=== PATIENT | male | born 1950 | race Two or more races ===

== ENCOUNTER 2024-06-25 04:13 | Inpatient (IN) | payer MEDICARE, MEDICAID, SELFPAY ==
[2024-06-25] VITALS (7 sets, daily range): BP systolic 109–144; BP diastolic 62–87; PULSE 65–120; RESP 15–19; TEMP 36.3–37.4; O2SAT 95–98; BMI 27.3
--- NOTE | 2024-06-25 04:27 | XR_ITS ---
Examination: CT abdomen with intravenous contrast CT pelvis with intravenous contrast 2-D coronal reconstructions 2-D sagittal reconstructions Date and time of exam:July 05, 2024 0855 hrs. Indications: Constipation fever chills abdominal pain today. CTDI: vol (mGy) 9.7 DLP: (mGycm) 591 Technique: Multiple axial sections of the abdomen and pelvis have been obtained. 64 slice high-resolution scanner used. 3 mm axial sections have been obtained, post intravenous injection 60 cc [id number] 2-D sagittal, coronal reconstructions obtained. Low dose protocols were performed. One or more of the following dose reduction techniques were used; automated exposure control, adjustment of the mA and/or KV according to patient size, use of iterative reconstruction technique. Findings: Mild enlargement cardiac contour No focal liver or splenic lesions No gallstones No pancreatic or adrenal mass 2 mm upper pole nonobstructing left renal calculus Mild perinephric stranding No ureteral calculi or hydronephrosis Fluid distended and stool distended colon with mild rectal wall thickening Normal appendix Urinary bladder intact Mild prostatomegaly Fat-containing hernias Impression: 2 mm nonobstructing left renal calculus Colonic ileus, diffuse nonspecific colitis pattern Normal appendix Large fat-containing inguinal hernias .
--- NOTE | 2024-06-25 04:28 | PD.EDRME ---
Rapid Medical Screening Exam RME Arrival date/time: 06/25/24 04:13 73-year-old male reports with complaints of left lower quadrant abdominal pain body aches fever chills x 1 day Chief Complaint: Abdominal Pain
[2024-06-25 05:09] LABS: Basophils % (Auto) 0 % (0-2.5); Eosinophils % (Auto) 0 % (0-10); Hematocrit 39.8 % (41.0-53.0); Hemoglobin 14.1 g/dL (13.5-16.0); Immature Granulocytes % (Auto) 0 % (0-0); Immature Granulocytes Auto 0.04 Thou/mm3 (0.00-0.00); Lymphocytes # (Auto) 0.7 Thou/mm3 (1.0-4.8); Lymphocytes % (Auto) 4 % (10-50); Mean Corpuscular HGB Conc 35.4 g/dl (31.0-37.0); Mean Corpuscular Hemoglobin 34.9 pg (25.0-35.0); Mean Corpuscular Volume 99 fL (80-100); Monocytes # (Auto) 1.2 Thou/mm3 (0.0-0.8); Monocytes % (Auto) 8 % (0-12); Neutrophils # (Auto) 14.1 Thou/mm3 (1.8-7.7); Neutrophils % (Auto) 88 % (37-80); Nucleated Red Blood Cell % 0 /100 WBC (0); Platelet Count 179 Thou/mm3 (140-440); RDW Standard Deviation 44.9 fL (35.1-43.9); Red Blood Count 4.04 Miln/mm3 (4.50-5.90); White Blood Count 16.1 Thou/mm3 (3.8-10.6)
[2024-06-25 05:46] LABS: Alanine Aminotransferase 16 U/L (10-49); Albumin, Serum 4.5 gm/dL (3.4-4.8); Albumin/Globulin Ratio 1.7 (1.2-2.2); Alkaline Phosphatase 118 U/L (46-116); Anion Gap 9 (7-16); Aspartate Amino Transferase 25 U/L (0-34); BUN/Creatinine Ratio 20 Ratio (12-20); Blood Urea Nitrogen 22 mg/dL (9-23); Calcium 9.5 mg/dL (8.3-10.6); Calcium (Corrected) 9.5 mg/dL (8.5-10.1); Carbon Dioxide 29.6 mMol/L (20.0-31.0); Chloride 103 mMol/L (98-107); Creatinine (Component) 1.1 mg/dL (0.6-1.3); Estimated Creatinine Clearance 61.6 mL/min (>60); Globulin 2.7 gm/dL (2.3-3.5); Glucose 208 mg/dL (74-106); Lipase 54 U/L (12-53); Osmolality,Calculated 292 (275-295); Potassium 3.8 mMol/L (3.4-5.1); Sodium 142 mMol/L (136-145); Total Protein 7.2 gm/dL (5.7-8.2); eGFR > 60 See Note
[2024-06-25] MEDS: SODIUM CHLORIDE 0.9% 1000 ML 1,000 ML 999 ML IV (06:24)
[2024-06-25] MEDS: PIPER/TAZO INJ 3.375 GM in SODIUM CHLORIDE 0.9% (Popper) 50 ML IV ×3 (06:24→22:12)
[2024-06-25 07:20] LABS: Lactate (Lactic Acid) 2.7 mMol/L (0.4-2.0)
--- NOTE | 2024-06-25 07:25 | EDNOTE_ITS ---
ED Abdominal Pain RME/HPI General Chief Complaint: Abdominal Pain Stated complaint: ABD PAIN Time seen by provider: 06/25/24 04:33 Arrival date/time: 06/25/24 04:13 RME / HPI RME / HPI narrative: 06/25/24 04:13 73-year-old male reports with complaints of left lower quadrant abdominal pain body aches fever chills x [address] MARTINEZ MAIN ED EVALUATION: 73 year old male with past medical history significant for hypertension, GERD, and laparoscopic hiatal hernia repair 11/30/[address] Eng presents to the Emergency Department with complaint of left lower quadrant abdominal pain onset 1 day. Pain is described as aching and rated moderate in severity. Associated symptoms body aches, fevers and chills. Related Data Home Medications ?Medication ?Instructions ?Recorded ?Confirmed losartan 50 mg tablet 50 mg PO QDAY 02/22/2006/25 tamsulosin 0.4 mg capsule 0.4 mg PO QDAY 10/19/2301/11 Previous Rx's ?Medication ?Instructions ?Recorded hydrocodone 10 mg-acetaminophen 1 tab PO Q6H PRN pain #28 tabs 11/30/23 325 mg tablet ibuprofen 800 mg tablet 800 mg PO Q8H PRN pain #60 t abs 11/30/23 Allergies Allergy/AdvReac Type Severity Reaction Status Date / Time No Known Allergies Allergy Verified 10/19/23 09:29 Review of Systems Review of Systems Systems Reviewed: All systems reviewed, normal except as documented Narrative Review of Systems: GEN: + fever, + chills, no weight loss EYES: No discharge, no visual changes, no pain HEENT: No ear pain, no congestion, no sore throat PULM: No shortness of breath, no cough, no congestion CV: No chest pain, no dyspnea on exertion, no palpitations GI: No nausea, no vomiting, no diarrhea, + left lower quadrant abdominal pain, no constipation : No frequency, no urgency and no dysuria MUSC/SKEL: + body aches, no back pain SKIN: No rash PSYCH: No hallucinations, no depression HEME/LYMPH: No easy bleeding or bruising tendencies NEURO: No weakness, no headache Past Medical History Past Medical History CARDIAC: Positive Hypertension GASTROINTESTINAL: Positive Gastrointestinal Disorders, Hiatal Hernia and Gastroesophageal Reflux Disease ENT: Positive Cataracts (2021) OTHER HISTORY: Positive Mumps Social History SMOKING STATUS: Never smoker SUBSTANCE USE: does not use ALCOHOL: Never ED Exam Narrative Physical exam: GENERAL APPEARANCE: alert and oriented x 4, well-developed, well-nourished, no acute distress VITALS: All vitals were reviewed and the pulse ox is 97% on room air, which is normal according to my interpretation. HEENT: Normocephalic, atraumatic; pupils equal, round, reactive to light; EOMI; mucous membranes pink, moist; oropharynx clear NECK: Supple LUNGS: CTABL; no wheezes, no rales, no rhonchi HEART: Regular rate, regular rhythm; normal S1, S2; no murmurs ABDOMEN: non distended; normal BS; soft, no tenderness, no guarding, no rebound; no masses, no organomegaly, no hernia BACK: no CVA tenderness EXTREMITIES: atraumatic; no edema NEUROLOGIC: awake; alert and oriented x4; cranial nerves II-XII grossly intact; no focal sensory or motor deficits PSYCHIATRIC: appropriate mood and affect SKIN: warm, dry, normal color; no rashes Course Quality Measures none Orders Category Date Time Status Bedside COVID-19 Antigen Test NOW Care 06/25/24 04:27 Completed Bedside Influenza A&B Antigen Test NOW Care 06/25/24 04:[address] Screening NOW Care 06/25/24 04:28 Active IV [Insert IV] NOW Care 06/25/24 05:[address] abdomen pelvis w con Stat Exams 06/25/24 04:27 Completed Blood Culture (Lab) Stat Lab 06/25/24 06:50 Results CBC Stat Lab 06/25/24 05:02 Completed CMP [Comprehensive Metabolic Panel] Stat Lab 06/25/24 05:02 Completed Lactate (Lactic Acid) Stat Lab 06/25/24 06:56 Completed Lactic Acid, 3 HR Stat Lab 06/25/24 10:30 Completed Lipase Stat Lab 06/25/24 05:02 Completed Occult Blood, Stool (LAB) Stat Lab 06/25/24 09:40 Completed Procalcitonin Stat Lab 06/25/24 05:02 Completed Urinalysis Stat Lab 06/25/24 07:17 Completed Urine Culture Stat Lab 06/25/24 07:17 Received Morphine Inj Med 06/25/24 07:21 Discontinued 5 mg IVP X1 ONE Ondansetron Inj [Zofran Inj] Med 06/25/24 07:21 Discontinued 4 mg IV X1 ONE Pantoprazole Inj [Protonix Inj] Med 06/25/24 08:59 Discontinued 80 mg IV X1 ONE Pantoprazole/Ns 80Mg IV Premix [Protonix/NS 80mg IV Med 06/25/24 08:59 Discontinued Premix] 80 mg in 100 ml IV X1 Piper/Tazo Inj [Zosyn Inj] 3.375 gm Med 06/25/24 06:12 Discontinued SODIUM CHLORIDE 0.9% (Popper) [Ns 0.9% (P)] 50 ml IV X1 Sodium Chloride 0.9% 1000 ml [Ns] 1,000 ml Med 06/25/24 06:12 Discontinued IV 999 mls/hr Vital Signs Vital signs: Vital Signs Temperature 98.1 F 06/25/24 04:29 Pulse Rate 120 H 06/25/24 04:29 Respiratory Rate 18 06/25/24 04:29 Blood Pressure 125/86 H 06/25/24 04:29 Pulse Oximetry (%) 96 06/25/24 04:29 Oxygen Delivery Method Room Air 06/25/24 04:29 Abdominal Pain MDM MDM Narrative MDM Narrative:: IManuela am scribing for and in the presence of Dr. Martinez. Patient data External records reviewed:: [facility] previous records (Reviewed laparoscopic hiatal hernia repair note by Dr. Eng, dated 11/30/23.) Clinical information provided by:: patient Social determinants that could affect healthcare access:: none Patient has the following chronic illnesses:: hypertension, GERD, and laparoscopic hiatal hernia repair 11/30/[address] nEg How is presenting disease/condition affected by chronic disease/condition?: exacerbated by Evaluation data The following diagnostics were reviewed and interpreted by me:: lab results and radiology exam(s) Lab and/or radiology exams considered but not ordered:: none Interpretation Summary: Procedure(s): CT abdomen pelvis w con Accession Number(s): [id number] cc: Juana Winchester MD; Jim Fuchs MD; Edgardo Andrade PA-C~ Examination: CT abdomen with intravenous contrast CT pelvis with intravenous contrast 2-D coronal reconstructions 2-D sagittal reconstructions Date and time of exam:July 05, 2024 0855 hrs. Indications: Constipation fever chills abdominal pain today. CTDI: vol (mGy) 9.7 DLP: (mGycm) 591 Technique: Multiple axial sections of the abdomen and pelvis have been obtained. 64 slice high-resolution scanner used. 3 mm axial sections have been obtained, post intravenous injection 60 cc [id number] 2-D sagittal, coronal reconstructions obtained. Low dose protocols were performed. One or more of the following dose reduction techniques were used; automated exposure control, adjustment of the mA and/or KV according to patient size, use of iterative reconstruction technique. Findings: Mild enlargement cardiac contour No focal liver or splenic lesions No gallstones No pancreatic or adrenal mass 2 mm upper pole nonobstructing left renal calculus Mild perinephric stranding No ureteral calculi or hydronephrosis Fluid distended and stool distended colon with mild rectal wall thickening Normal appendix Urinary bladder intact Mild prostatomegaly Fat-containing hernias Impression: 2 mm nonobstructing left renal calculus Colonic ileus, diffuse nonspecific colitis pattern Normal appendix Large fat-containing inguinal hernias . Dictated By: Jim Fuchs MD Medications / Prescriptions Medications or Prescriptions considered but not ordered:: none Medication administrations:: Medication Administration History Acetaminophen (Acetaminophen 325 Mg Tablet) 650 mg PO Q6H PRN PRN Reason: PAIN SCALE 1-3 (mild Stop: 07/25/24 11:28 Last Admin: 06/26/24 11:21 Dose: 650 mg Documented By: [place] Diphenhydramine HCl (Diphenhydramine Inj 50 Mg/Ml Vial) 25 mg IV [id number] PRN PRN Reason: MODERATE SEDATION Stop: 06/26/24 20:20 Fentanyl Citrate (Fentanyl Cit Inj 50 Mcg/Ml Amp 2ml) 50 mcg IV Q2M PRN PRN Reason: MODERATE SEDATION Stop: 06/26/24 20:20 Heparin Sodium (Porcine) (Heparin Sod Inj 5000 Unit/Ml Vial) 5,000 unit SC Q8HR MICHAEL Stop: 07/09/24 13:59 Last Admin: 06/26/24 13:19 Dose: Not Given Documented By: JV Non-Admin Reason: Held for Procedure Admin: 06/26/24 05:13 Dose: 5,000 unit Documented By: EVELINE Co-signed By: DOMINGA Admin: 06/25/24 22:13 Dose: 5,000 unit Documented By: FF Co-signed By: RB Admin: 06/25/24 15:12 Dose: 5,000 unit Documented By: [place] Co-signed By: LT Sodium Chloride (Ns) 1,000 mls @ 75 mls/hr IV .[id number] REPLACED BY [facility] Stop: 07/25/24 11:29 Last Admin: 06/26/24 17:30 Dose: 75 mls/hr Documented By: Infusion: 06/26/24 15:17 Dose: Infused Documented By: Admin: 06/26/24 01:57 Dose: 75 mls/hr Documented By: Infusion: 06/26/24 01:43 Dose: Infused Documented By: Admin: 06/25/24 12:23 Dose: 75 mls/hr Documented By: GM Piperacillin Sod/Tazobactam (Sod 3.375 gm/ Sodium Chloride) 50 mls @ 12.5 mls/hr IV Q8HR MICHAEL Stop: 07/02/24 13:59 Last Admin: 06/26/24 13:18 Dose: 12.5 mls/hr Documented By: JDanni Infusion: 06/26/24 09:13 Dose: Infused Documented By: Admin: 06/26/24 05:13 Dose: 12.5 mls/hr Documented By: Infusion: 06/26/24 02:12 Dose: Infused Documented By: Admin: 06/25/24 22:12 Dose: 12.5 mls/hr Documented By: Infusion: 06/25/24 19:13 Dose: Infused Documented By: Admin: 06/25/24 15:13 Dose: 12.5 mls/hr Documented By: [place] Meperidine HCl (Meperidine Inj 50 Mg/Ml Vial) 50 mg IV Q2M PRN PRN Reason: Moderate Sedation Stop: 06/26/24 20:20 Midazolam HCl (Midazolam Inj 1 Mg/Ml Vial 2 Ml) 2 mg IV Q2M PRN PRN Reason: Moderate Sedation Stop: 06/26/24 20:20 Pantoprazole Sodium (Pantoprazole Inj 40 Mg Vial) 40 mg IV BID REPLACED BY [facility] Stop: 07/25/24 20:59 Last Admin: 06/26/24 09:09 Dose: 40 mg Documented By: JDanni Admin: 06/25/24 20:46 Dose: 40 mg Documented By: FF Tamsulosin HCl (Tamsulosin Hcl 0.4 Mg Capsule) 0.4 mg PO QDAY MICHAEL Stop: 07/26/24 08:59 Last Admin: 06/26/24 09:20 Dose: Not Given Documented By: DEEPA Non-Admin Reason: NPO Discontinued Medications Diphenhydramine HCl (Diphenhydramine Inj 50 Mg/Ml Vial) Confirm Administered Dose 50 mg .ROUTE .STK-MED ONE Stop: 06/26/24 18:53 Fentanyl Citrate (Fentanyl Cit Inj 50 Mcg/Ml Amp 2ml) Confirm Administered Dose 100 mcg .ROUTE .STK-MED ONE Stop: 06/26/24 18:53 Piperacillin Sod/Tazobactam (Sod 3.375 gm/ Sodium Chloride) 50 mls @ 100 mls/hr IV X1 ONE Stop: 06/25/24 06:41 Last Infusion: 06/25/24 07:16 Dose: Infused Documented By: Admin: 06/25/24 06:24 Dose: 100 mls/hr Documented By: LEATHA Sodium Chloride (Ns) 1,000 mls @ 999 mls/hr IV .Q1H1M ONE Stop: 06/25/24 07:12 Last Infusion: 06/25/24 07:16 Dose: Infused Documented By: Admin: 06/25/24 06:24 Dose: 999 mls/hr Documented By: LEATHA Pantoprazole Sodium (Protonix/Ns 80mg Iv Premix) 80 mg in 100 mls @ 10 mls/hr IV X1 ONE Stop: 06/25/24 18:58 Last Admin: 06/25/24 09:13 Dose: 10 mls/hr Documented By: STEVE Midazolam HCl (Midazolam Inj 1 Mg/Ml Vial 2 Ml) Confirm Administered Dose 4 mg .ROUTE .STK-MED ONE Stop: 06/26/24 18:53 Morphine Sulfate (Morphine Sulf Inj 10 Mg/Ml Vial) 5 mg IVP X1 ONE Stop: 06/25/24 07:22 Last Admin: 06/25/24 08:46 Dose: 5 mg Documented By: MAUDE Morphine Sulfate (Morphine Sulf Inj 10 Mg/Ml Vial) 5 mg IVP X1 ONE Stop: 06/25/24 11:30 Last Admin: 06/25/24 12:18 Dose: 5 mg Documented By: MAUDE Ondansetron HCl (Ondansetron Inj 2 Mg/Ml Inj 2 Ml) 4 mg IV X1 ONE Stop: 06/25/24 07:22 Last Admin: 06/25/24 08:44 Dose: 4 mg Documented By: MAUDE Ondansetron HCl (Ondansetron Inj 2 Mg/Ml Inj 2 Ml) 4 mg IV X1 ONE Stop: 06/25/24 11:30 Last Admin: 06/25/24 12:20 Dose: 4 mg Documented By: GM Pantoprazole Sodium (Pantoprazole Inj 40 Mg Vial) 80 mg IV X1 ONE Stop: 06/25/24 09:00 Last Admin: 06/25/24 09:12 Dose: 80 mg Documented By: STEVE Polyethylene Glycol/Electrolytes ([place]/Nahco3/Jose/Peg (Golytely) 4,000 Ml Btl) 4,000 ml PO X1 ONE Stop: 06/25/24 11:36 Last Admin: 06/25/24 12:31 Dose: 4,000 ml Documented By: GM Comments: GIVEN TO PT PO. Polyethylene Glycol/Electrolytes ([place]/Nahco3/Jose/Peg (Golytely) 4,000 Ml Btl) 4,000 ml PO X1 ONE Stop: 06/26/24 07:43 Last Admin: 06/26/24 07:53 Dose: 4,000 ml Documented By: [place] Potassium Chloride (Potassium Chloride 20 Meq Tabcr) 40 meq PO X1 ONE Stop: 06/26/24 10:02 Last Admin: 06/26/24 10:06 Dose: Not Given Documented By: [place] Non-Admin Reason: NPO see above Consultations Consultation(s) initiated? (list below): Yes Consultation #1 (Physician, Specialty, Details): Discussed test HPI, PMHx, lab, radiology results and/or management with hospitalist. Will admit for further evaluation and management. Accepts patient for admission. Time: 11:30 Diagnosis Differential diagnosis abdominal pain: abdominal pain, acute appendicitis, pancreatitis and other (Upper/ lower GI bleed) Most likely diagnosis given after review of the tests above:: Abdominal pain Ileus Upper GI bleed Admission Indicated Admission indicated?: indicated Admission Request Was there a request for admission?: Yes Admission Attestation Admission request attestation: Discussed case with [] from Hospitalist service regarding admission. Discussed patients ED course, exam findings, labs, and radiology results. The Hospitalist [agrees,declines] to accept the patient for admission. Disposition Plan Disposition Plan: Admit Discharge Plan Plan Patient Disposition: Admit Acute Care w/in Hospital Problem List Clinical Impression: Abdominal pain, Ileus, Upper GI bleed
[2024-06-25] MEDS: ONDANSETRON INJ 2 MG/ML INJ 2 ML 4 MG IV ×2 (08:44→12:20)
[2024-06-25] MEDS: MORPHINE SULF INJ 10 MG/ML VIAL 5 MG IVP ×2 (08:46→12:18)
[2024-06-25 09:07] LABS: Collection Type, Urine Clean Catch; Squamous Epithelial Cell,Urine 0 /hpf (0-5); WBC,Urine 0 /hpf (0-5)
[2024-06-25] MEDS: PANTOPRAZOLE INJ 40 MG VIAL 80 MG IV (09:12)
[2024-06-25] MEDS: PANTOPRAZOLE/NS 80MG IV PREMIX 80 MG/100 ML BAG 10 MG IV (09:13)
[2024-06-25 09:42] LABS: Amorphous Crystals,Urine Present (Absent); Bilirubin,Urine Negative (Negative); Blood,Urine Negative (Negative); Color,Urine Yellow (Lt Yel-Yel); Glucose, Urine Trace (Negative); Ketones,Urine 2+ (Negative); Leukocyte Esterase,Urine Negative (Negative); Nitrite,Urine Negative (Negative); PH,Urine 7.5 (5.0-7.0); Protein,Urine Negative (Neg - Trace); RBC,Urine 2 /hpf (0-3); Specific Gravity,Urine 1.021 (1.001-1.035); Urobilinogen,Urine Negative mg/dL (0.0-1.0)
[2024-06-25 09:50] LABS: Clarity,Urine Turbid (Clear/Hazy)
[2024-06-25 09:55] LABS: OBS Card Lot # 124; OBS Developer Lot # 124; OBS Performed By PEREJ; OBS QC OK? Yes; Occult Blood, Stool Positive (Negative)
[2024-06-25 10:17] LABS: Reflex Lactate? Y
[2024-06-25 10:43] LABS: Lactic Acid, 3 HR 2.1 mMol/L (0.4-2.0)
--- NOTE | 2024-06-25 11:55 | ESHP_ITS ---
Documentation for date of: 06/25/24 [facility] History of Present Illness Chief complaint: Abdominal pain History of present illness: 73-year-old male with past medical history of hypertension, BPH who presented to ED due to abdominal pain. Pain started 2 days ago became progressive and uncomfortable and decided to come to the ED. Pain was described as 10 out of 10 pain mostly on the left side but spreads to the rest of the abdomen when palpated. Patient also notes having fever and chills for the past 3 days and increasing abdominal distention. Patient also has not had a bowel movement for the past 3 days. Patient states he did not eat anything out of the ordinary. Denies recent travel, shortness of breath, chest pain, vomiting ED course: Vitals on arrival BP 125/86, heart rate 120, O2 sat 96% on room air. Labs significant for leukocytosis, glucose 208, lactic acid 2.8, alk phos 118, lipase 54, UA was negative for any acute infection. Abdominal pelvic CT scan showed 2 mm nonobstructing left renal calculus, Colonic ileus, diffuse nonspecific colitis pattern, Normal appendix, Large fat-containing inguinal hernias. In the ED patient received Zosyn, 1 L NS, morphine, Zofran, PPI. PMHx: Hypertension, BPH SxHx: Inguinal hernia surgery, ventral hernia surgery Social Hx: Denies smoking, denies alcohol use, denies illicit substances FHx: Unknown Review of Systems Review of Systems Narrative Review of Systems: Narrative ROS GENERAL: + fevers/chills or diaphoresis. HEENT: Denies headache or visual/hearing changes. Denies nasal discharge. NEURO: Denies unusual weakness or difficulty speaking. CARDIO: Denies chest pain or palpitations. PULM: Denies SOB, coughing, or wheezing. GI: + abdominal pain, denies N/V/C/D/reflux/gas, bright red blood per rectum or melena URO: Denies burning/itching/pain/urinary changes. MSK/EXT/SKIN: Denies joint/skeletal/muscle pain, issues/changes in upper or lower extremities, itchiness, or superficial pain. PSYCH: Cooperative, pleasant mood & affect. The rest of the review of systems is otherwise negative. Exam Vital Signs Temp Pulse Resp BP Pulse Ox O2 Del Method 98.4 F 79 15 123/74 97 Room Air 06/25/24 09:48 06/25/24 09:48 06/25/24 09:48 06/25/24 09:48 06/25/24 09:48 06/25/24 09:48 Narrative Exam Physical Exam GENERAL: NAD, AAOx3 HEENT: Moist mucosa. Eyes open, symmetrical, & clear CARDIO: Heart RRR, no obvious murmurs PULM: No noted coughing/dyspnea CTA B/L, no R/W/R GI: Abdomen rigid, distended, pain on palpation most pronounced on the left side of the abdomen. Hypoactive bowel sounds SKIN/MSK/EXT: No wounds/rashes/edema/amputations, no pain on palpation. Pedal pulses present B/L NEURO: AAOx3, no focal neuro deficits, able to move all 4 extremities Results: Labs 06/26/24 08:02 06/26/24 08:02 Labs: Short CBC 06/25/24 Range/Units 05:02 WBC 16.1 H (3.8-10.6) Thou/mm3 Hgb 14.1 (13.5-16.0) g/dL Hct 39.8 L (41.0-53.0) % Plt Count 179 (140-440) Thou/mm3 BMP 06/25/24 05:02 Sodium 142 Potassium 3.8 Chloride 103 Carbon Dioxide 29.6 BUN 22 Creatinine 1.1 Glucose 208 H Calcium 9.5 Liver Function 06/25/24 Range/Units 05:02 Total Bilirubin 1.0 (0.3-1.2) mg/dL AST 25 (0-34) U/L ALT 16 (10-49) U/L Alkaline Phosphatase 118 H (46-116) U/L Albumin 4.5 (3.4-4.8) gm/dL Urine 06/25/24 Range/Units 07:17 Urine Color Yellow (Lt Yel-Yel) Urine Clarity Turbid A (Clear/Hazy) Urine pH 7.5 H (5.0-7.0) Ur Specific [place] 1.021 (1.001-1.035) Urine Protein Negative (Neg - Trace) Urine Glucose (UA) Trace (Negative) Quality Measures Quality Measures none Advance care planning discussed with:: patient Medications Home Medications and Allergies Home Medications ?Medication ?Instructions ?Recorded ?Confirmed ?Type losartan 50 mg tablet 50 mg PO QDAY 02/22/2006/25 History tamsulosin 0.4 mg capsule 0.4 mg PO QDAY 10/19/2301/11 History Allergies Allergy/AdvReac Type Severity Reaction Status Date / Time No Known Allergies Allergy Verified 10/19/23 09:29 Visit Medications Acetaminophen (Acetaminophen 325 Mg Tablet) 650 mg PO Q6H PRN PRN Reason: PAIN SCALE 1-3 (mild Stop: 07/25/24 11:28 Heparin Sodium (Porcine) (Heparin Sod Inj 5000 Unit/Ml Vial) 5,000 unit SC Q8HR [facility] Stop: 07/09/24 13:59 Pantoprazole Sodium (Protonix/Ns 80mg Iv Premix) 80 mg in 100 mls @ 10 mls/hr IV X1 ONE Stop: 06/25/24 18:58 Last Admin: 06/25/24 09:13 Dose: 10 mls/hr Sodium Chloride (Ns) 1,000 mls @ 75 mls/hr IV .[id number] MICHAEL Stop: 07/25/24 11:29 Piperacillin Sod/Tazobactam (Sod 3.375 gm/ Sodium Chloride) 50 mls @ 12.5 mls/hr IV Q8HR MICHAEL Stop: 07/02/24 13:59 Discontinued Medications Piperacillin Sod/Tazobactam (Sod 3.375 gm/ Sodium Chloride) 50 mls @ 100 mls/hr IV X1 ONE Stop: 06/25/24 06:41 Last Infusion: 06/25/24 07:16 Dose: Infused Sodium Chloride (Ns) 1,000 mls @ 999 mls/hr IV .Q1H1M ONE Stop: 06/25/24 07:12 Last Infusion: 06/25/24 07:16 Dose: Infused Morphine Sulfate (Morphine Sulf Inj 10 Mg/Ml Vial) 5 mg IVP X1 ONE Stop: 06/25/24 07:22 Last Admin: 06/25/24 08:46 Dose: 5 mg Morphine Sulfate (Morphine Sulf Inj 10 Mg/Ml Vial) 5 mg IVP X1 ONE Stop: 06/25/24 11:30 Ondansetron HCl (Ondansetron Inj 2 Mg/Ml Inj 2 Ml) 4 mg IV X1 ONE Stop: 06/25/24 07:22 Last Admin: 06/25/24 08:44 Dose: 4 mg Ondansetron HCl (Ondansetron Inj 2 Mg/Ml Inj 2 Ml) 4 mg IV X1 ONE Stop: 06/25/24 11:30 Pantoprazole Sodium (Pantoprazole Inj 40 Mg Vial) 80 mg IV X1 ONE Stop: 06/25/24 09:00 Last Admin: 06/25/24 09:12 Dose: 80 mg Polyethylene Glycol/Electrolytes (Na [place]/Nahco3/Jose/Peg (Golytely) 4,000 Ml Btl) 4,000 ml PO X1 ONE Stop: 06/25/24 11:36 Assessment & Plan Plan 73-year-old male with past medical history of hypertension, BPH who presented to ED due to abdominal pain. Pain started 2 days ago became progressive and uncomfortable and decided to come to the ED. Pain was described as 10 out of 10 pain mostly on the left side but spreads to the rest of the abdomen when palpated. Patient also notes having fever and chills for the past 3 days and increasing abdominal distention. Patient also has not had a bowel movement for the past 3 days. Patient states he did not eat anything out of the ordinary. Patient does state that his stools are black however patient does endorse taking Pepto-Bismol. Denies recent travel, shortness of breath, chest pain, vomiting. #?Colitis #Left-sided abdominal pain Pain started 2 days ago became progressive and uncomfortable and decided to come to the ED. Pain was described as 10 out of 10 pain mostly on the left side but spreads to the rest of the abdomen when palpated Patient was complaining of fever and chills for the past 3 days and increasing abdominal distention Patient does state that his stools are black however patient does endorse taking Pepto-Bismol CT abdomen pelvis showed Abdominal pelvic CT scan showed 2 mm nonobstructing left renal calculus, Colonic ileus, diffuse nonspecific colitis pattern, Normal appendix, Large fat-containing inguinal hernias In the ED patient received 1 L NS, Zosyn, Zofran, morphine ? NS at 75 cc/h ? On Zosyn [06/25/2024?] ? Blood cultures ordered ? Urine cultures ordered ? N.p.o. for possible GI intervention ? Protonix 40 mg twice daily ? GoLytely ? Pain control ? GI Dr. Reveles consulted, appreciate recommendations #Hypertension Patient takes losartan 50 mg daily Patient normotensive at this time Will resume antihypertensives as needed #BPH Patient at this time denies any urinary problems ? Resumed tamsulosin Case discussed with my attending Dr. Torres Schultz MD PGY-1 Disposition: MedSurg Fluids: NS Feeding: N.p.o. Thrombo prophylaxis: Heparin Gastric Ulcer prophylaxis: Pantoprazole 40 mg IV daily CODE STATUS: Full code Attending Provider Attestation/Addendum Chanell Garcia DO, attest that I was physically present for the samaniego portions of the service and evaluated the patient with the resident and I reviewed and discussed the case with the resident and agree with the resident's findings and plans of care as documented above Patient is a 73-year-old male with past medical history of GERD status post Jesús fundoplication, hypertension, BPH who presented to the ED due to abdominal pain. Patient states that he has not had a bowel movement for few days and had worsening lower left quadrant pain. Patient had taken some Pepto- Bismol yesterday night without any resolution of his pain. He describes it as diffuse and cramping. Patient was able to have a bowel movement here in the ED this morning and noted that it was black. Suspect that it could be due to Pepto-Bismol, but FOBT was done in the ED and noted to be positive for blood. Patient last had a colonoscopy 3 years ago and states that it was unremarkable. Patient noted to have an elevated lactic acid on presentation 2.8. He is also tachycardic with a leukocytosis of 16. CT abdomen pelvis was done showing evidence of colonic ileus, diffuse nonspecific colitis and a 2 mm nonobstructing left renal calculus. Patient received Zosyn and IV fluids in the ED. Will admit patient to med/surge for further workup and medical management of colitis. Will place patient on IV antibiotics and Protonix. GI consulted due to concern for melena. Will also trend H&H. Will start patient on GoLytely due to ileus at this time and continue with IV fluid hydration.
[2024-06-25] MEDS: SODIUM CHLORIDE 0.9% 1000 ML 1,000 ML 75 ML IV (12:23)
[2024-06-25] MEDS: NA SU/NAHCO3/KC/PEG (Golytely) 4,000 ML BTL 4000 ML PO (12:31)
[2024-06-25] MEDS: HEPARIN SOD INJ 5000 UNIT/ML VIAL SC ×2 (15:12→22:13)
--- NOTE | 2024-06-25 17:43 | PD.IMCONS ---
HPI Data of Consult Requesting Physician: Chanell Macdonald DO Primary Care Provider: Juana Winchester MD Consult Narrative Reason for consult: Left lower quadrant abdominal pain History of present illness: 73 years old male with history of hypertension gastroesophageal reflux disease hiatal hernia repair 11/30/2023 came into the emergency room with fever left lower quadrant abdominal pain and lower abdominal pain Patient had a CT scan of the abdomen pelvis done with contrast that showed large fat-containing inguinal hernias as well as colitis and stool impaction left colon Patient was started after [place] culturing on Zosyn cc:: cc: Chanell Macdonald DO Review of Systems Review of Systems Systems Reviewed: All systems reviewed, normal except as documented Past Medical History Surgical History OTHER SURGICAL HX: As in the history of present illness Meds Home Medications and Allergies Home Medications ?Medication ?Instructions ?Recorded ?Confirmed ?Type losartan 50 mg tablet 50 mg PO QDAY 02/22/20 06/25/24 History tamsulosin 0.4 mg capsule 0.4 mg PO QDAY 10/19/23 06/25/24 History Allergies Allergy/AdvReac Type Severity Reaction Status Date / Time No Known Allergies Allergy Verified 10/19/23 09:29 Exam Vital Signs Temp Pulse Resp BP Pulse Ox O2 Del Method 97.9 F 78 16 114/75 97 Room Air 06/25/24 12:32 06/25/24 12:32 06/25/24 12:32 06/25/24 12:32 06/25/24 12:32 06/25/24 12:32 Routine Respiratory Exam Comments: Normal to auscultation Routine Abdominal Exam Comments: Soft nontender Results Labs 06/25/24 05:02 06/25/24 05:02 Labs: Short CBC 06/25/24 Range/Units 05:02 WBC 16.1 H (3.8-10.6) Thou/mm3 Hgb 14.1 (13.5-16.0) g/dL Hct 39.8 L (41.0-53.0) % Plt Count 179 (140-440) Thou/mm3 BMP 06/25/24 05:02 Sodium 142 Potassium 3.8 Chloride 103 Carbon Dioxide 29.6 BUN 22 Creatinine 1.1 Glucose 208 H Calcium 9.5 Liver Function 06/25/24 Range/Units 05:02 Total Bilirubin 1.0 (0.3-1.2) mg/dL AST 25 (0-34) U/L ALT 16 (10-49) U/L Alkaline Phosphatase 118 H (46-116) U/L Albumin 4.5 (3.4-4.8) gm/dL Urine 06/25/24 Range/Units 07:17 Urine Color Yellow (Lt Yel-Yel) Urine Clarity Turbid A (Clear/Hazy) Urine pH 7.5 H (5.0-7.0) Ur Specific [place] 1.021 (1.001-1.035) Urine Protein Negative (Neg - Trace) Urine Glucose (UA) Trace (Negative) Assessment and Plan Additional Assessment & Plan Additional Plan: # Pain abdomen with fever and abnormal CT scan of the abdomen and pelvis Agree with Flaviasyn Flush the colon with the GoLytely reexamination in 24 hours We will consider doing a fiberoptic colonoscopy prior to discharge Other medical problems include Essential hypertension Gastroesophageal disease Status post hiatal hernia repair 11/30/2023 Thank you for the opportunity to participate in the care of this patient
[2024-06-25] MEDS: PANTOPRAZOLE INJ 40 MG VIAL IV (20:46)
[2024-06-26] VITALS (23 sets, daily range): BP systolic 119–155; BP diastolic 71–104; PULSE 61–91; RESP 15–26; TEMP 36–37.1; O2SAT 94–100; BMI 30.4
[2024-06-26 00:52] LABS: Collection Type, Urine Clean Catch; Squamous Epithelial Cell,Urine 0 /hpf (0-5)
[2024-06-26 01:04] LABS: Amorphous Crystals,Urine Present (Absent); Bilirubin,Urine Negative (Negative); Blood,Urine Negative (Negative); Clarity,Urine Clear (Clear/Hazy); Color,Urine Yellow (Lt Yel-Yel); Glucose, Urine Negative (Negative); Ketones,Urine 2+ (Negative); Leukocyte Esterase,Urine Negative (Negative); Nitrite,Urine Negative (Negative); Protein,Urine Trace (Neg - Trace); RBC,Urine 7 /hpf (0-3); Specific Gravity,Urine 1.035 (1.001-1.035); Urobilinogen,Urine Negative mg/dL (0.0-1.0); WBC,Urine 8 /hpf (0-5)
[2024-06-26 01:13] LABS: Bacteria,Urine 1+
[2024-06-26] MEDS: SODIUM CHLORIDE 0.9% 1000 ML 1,000 ML 75 ML IV ×2 (01:57→17:30)
[2024-06-26] MEDS: PIPER/TAZO INJ 3.375 GM in SODIUM CHLORIDE 0.9% (Popper) 50 ML IV ×3 (05:13→22:12)
[2024-06-26] MEDS: HEPARIN SOD INJ 5000 UNIT/ML VIAL SC (05:13)
[2024-06-26] MEDS: NA SU/NAHCO3/KC/PEG (Golytely) 4,000 ML BTL 4000 ML PO (07:53)
[2024-06-26 08:22] LABS: Basophils % (Auto) 0 % (0-2.5); Eosinophils # (Auto) 0.2 Thou/mm3 (0.0-0.5); Eosinophils % (Auto) 3 % (0-10); Hemoglobin 12.1 g/dL (13.5-16.0); Immature Granulocytes % (Auto) 0 % (0-0); Immature Granulocytes Auto 0.01 Thou/mm3 (0.00-0.00); Lymphocytes # (Auto) 1.3 Thou/mm3 (1.0-4.8); Lymphocytes % (Auto) 17 % (10-50); Mean Corpuscular HGB Conc 34.6 g/dl (31.0-37.0); Mean Corpuscular Hemoglobin 34.8 pg (25.0-35.0); Mean Corpuscular Volume 101 fL (80-100); Monocytes # (Auto) 0.8 Thou/mm3 (0.0-0.8); Monocytes % (Auto) 11 % (0-12); Neutrophils # (Auto) 5.1 Thou/mm3 (1.8-7.7); Neutrophils % (Auto) 69 % (37-80); Nucleated Red Blood Cell % 0 /100 WBC (0); Platelet Count 137 Thou/mm3 (140-440); RDW Standard Deviation 48.1 fL (35.1-43.9); Red Blood Count 3.48 Miln/mm3 (4.50-5.90); White Blood Count 7.4 Thou/mm3 (3.8-10.6)
[2024-06-26 08:59] LABS: Alanine Aminotransferase 16 U/L (10-49); Albumin, Serum 3.6 gm/dL (3.4-4.8); Albumin/Globulin Ratio 1.6 (1.2-2.2); Alkaline Phosphatase 83 U/L (46-116); Anion Gap 7 (7-16); Aspartate Amino Transferase 22 U/L (0-34); BUN/Creatinine Ratio 13 Ratio (12-20); Bilirubin,Total 1.4 mg/dL (0.3-1.2); Blood Urea Nitrogen 12 mg/dL (9-23); Calcium (Corrected) 8.3 mg/dL (8.5-10.1); Chloride 110 mMol/L (98-107); Creatinine (Component) 0.9 mg/dL (0.6-1.3); Globulin 2.2 gm/dL (2.3-3.5); Glucose 94 mg/dL (74-106); Magnesium 2.1 mg/dL (1.6-2.6); Osmolality,Calculated 288 (275-295); Potassium 3.3 mMol/L (3.4-5.1); Sodium 145 mMol/L (136-145); Total Protein 5.8 gm/dL (5.7-8.2); eGFR > 60 See Note
[2024-06-26] MEDS: PANTOPRAZOLE INJ 40 MG VIAL IV ×2 (09:09→22:12)
[2024-06-26] MEDS: ACETAMINOPHEN 325 MG TABLET 650 MG PO (11:21)
--- NOTE | 2024-06-26 11:47 | PC.SS ---
Patient is alert/oriented. Patient verified demographics. Frisian speaking only. 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 He resides with . Patient is independent with ADL's. No DME. Patient states he drives himself to appointments. Patient was admitted for colitis. He states he will be getting a colonoscopy today. PCP: Dr. Winchester. Last appt. was 2 weeks ago. He does not see any other physicians. Pharmacy: [facility]. Patient states his alt medical decision maker is his . Patient family to provide transportation home. D/c plan: remains to return home. No further d/c needs.
--- NOTE | 2024-06-26 12:08 | ESPR_ITS ---
<Statement entered by Kelsie Adamson MD - 06/26/24 17:04> I discussed with and supervised the internal affairs investigator physician who took care of this patient. I personally saw and examined the patient and discussed the assessment and plan with the entire medicine team, including my attending Dr. Macdonald, I agree with the assessment and plan as documented below Patient seen and examined at bedside today. Labs and imaging reviewed. No overnight acute events Patient started colon prep for colonoscopy by gastroenterology and patient remained stable we will anticipate discharge in the next 24 to 48 hours Kelsie Adamson MD PGY-3 Disclaimer: Despite multiple revisions, due to the dictation software being used, the document bellow may not be free of grammatical errors including phonetic/typographic errors. However, this does not deter from our commitment to providing health care in the patient's best interest in mind. Documentation for date of: 06/26/24 Subjective Subjective Interval history: Patient seen today at the bedside fine awake, alert, oriented x 3. No overnight events reported. States improvement in abdominal pain and decreased distention. Vital signs stable at this time. Labs unremarkable at this time. Patient still on GoLytely prep for possible colonoscopy with GI Dr. Reveles. Exam Vital Signs Temp Pulse Resp BP Pulse Ox O2 Del Method 97.4 F 61 17 122/75 96 Room Air 06/26/24 11:12 06/26/24 11:12 06/26/24 11:12 06/26/24 11:12 06/26/24 11:12 06/26/24 11:12 Narrative Exam Physical Exam GENERAL: NAD, AAOx3 HEENT: Moist mucosa. Eyes open, symmetrical, & clear CARDIO: Heart RRR, no obvious murmurs PULM: No noted coughing/dyspnea CTA B/L, no R/W/R GI: Abdomen rigid, distended, pain on palpation most pronounced on the left side of the abdomen. BSx4 SKIN/MSK/EXT: No wounds/rashes/edema/amputations, no pain on palpation. Pedal pulses present B/L NEURO: AAOx3, no focal neuro deficits, able to move all 4 extremities Objective Labs 06/27/24 05:28 06/27/24 05:28 Labs: Laboratory Results - last 24 hr 06/25/24 06/26/24 06/26/24 09:40 00:44 08:02 WBC 7.4 D RBC 3.48 L Hgb 12.1 L D Hct 35.0 L MCV 101 H MCH 34.8 MCHC 34.6 RDW Std Deviation 48.1 H Plt Count 137 L D Neut % (Auto) 69 Lymph % (Auto) 17 [place] % (Auto) 11 Eos % (Auto) 3 Baso % (Auto) 0 Neut # (Auto) 5.1 Lymph # (Auto) 1.3 [place] # (Auto) 0.8 Eos # (Auto) 0.2 Baso # (Auto) 0.0 Immature Gran # (Auto) 0.01 H Absolute Nucleated RBC 0.00 Immature Gran % 0 Nucleated RBC % 0 Sodium 145 Potassium 3.3 L D Chloride 110 H Carbon Dioxide 28.0 Anion Gap 7 BUN 12 Creatinine 0.9 Estim Creat Clear Calc 85.0 eGFR > 60 BUN/Creatinine Ratio 13 Glucose 94 D Calculated Osmolality 288 Calcium 8.0 L D Corrected Calcium 8.3 L Magnesium 2.1 Total Bilirubin 1.4 H AST 22 ALT 16 Alkaline Phosphatase 83 D Total Protein 5.8 Albumin 3.6 D Globulin 2.2 L Albumin/Globulin Ratio 1.6 Ur Collection Type Clean Catch Urine Color Yellow Urine Clarity Clear Urine pH 7.0 Ur Specific [place] 1.035 Urine Protein Trace Urine Glucose (UA) Negative Urine Ketones 2+ A Urine Blood Negative Urine Nitrite Negative Urine Bilirubin Negative Urine Urobilinogen (Auto) Negative Ur Leukocyte Esterase Negative Urine RBC 7 H Urine WBC 8 H Ur Squamous Epith Cells 0 Amorphous Crystals Present A Urine Bacteria 1+ A Stool Occult Blood Positive A Quality Measures Quality Measures none Advance care planning discussed with:: patient Assessment & Plan Assessment Current Active Medications: Generic Name Dose Route Start Last Admin Trade Name Mirtha PRN Reason Stop Dose Admin Acetaminophen 650 mg 06/25/24 11:29 06/26/24 11:21 Acetaminophen 325 Mg Tablet PO 07/25/24 11:28 650 mg Q6H PRN Administration PAIN SCALE 1-3 (mild Heparin Sodium (Porcine) 5,000 unit 06/25/24 14:00 06/26/24 05:13 Heparin Sod Inj 5000 Unit/Ml Vial SC 07/09/24 13:59 5,000 unit Q8HR MICHAEL Administration Sodium Chloride 1,000 mls @ 75 mls/hr 06/25/24 11:30 06/26/24 01:57 Ns IV 07/25/24 11:29 75 mls/hr .[id number] MICHAEL Administration Piperacillin Sod/Tazobactam 50 mls @ 12.5 mls/hr 06/25/24 14:00 06/26/24 05:13 Sod 3.375 gm/ Sodium Chloride IV 07/02/24 13:59 12.5 mls/hr Q8HR MICHAEL Administration Pantoprazole Sodium 40 mg 06/25/24 21:00 06/26/24 09:09 Pantoprazole Inj 40 Mg Vial IV 07/25/24 20:59 40 mg BID MICHAEL Administration Tamsulosin HCl 0.4 mg 06/26/24 09:00 06/26/24 09:20 Tamsulosin Hcl 0.4 Mg Capsule PO 07/26/24 08:59 Not Given QDAY MICHAEL Plan 73-year-old male with past medical history of hypertension, BPH who presented to ED due to abdominal pain. Pain started 2 days ago became progressive and uncomfortable and decided to come to the ED. Pain was described as 10 out of 10 pain mostly on the left side but spreads to the rest of the abdomen when palpated. Patient also notes having fever and chills for the past 3 days and increasing abdominal distention. Patient also has not had a bowel movement for the past 3 days. Patient states he did not eat anything out of the ordinary. Patient does state that his stools are black however patient does endorse taking Pepto-Bismol. Denies recent travel, shortness of breath, chest pain, vomiting. #?Colitis #Left-sided abdominal pain Pain started 2 days ago became progressive and uncomfortable and decided to come to the ED. Pain was described as 10 out of 10 pain mostly on the left side but spreads to the rest of the abdomen when palpated Patient was complaining of fever and chills for the past 3 days and increasing abdominal distention Patient does state that his stools are black however patient does endorse taking Pepto-Bismol CT abdomen pelvis showed Abdominal pelvic CT scan showed 2 mm nonobstructing left renal calculus, Colonic ileus, diffuse nonspecific colitis pattern, Normal appendix, Large fat-containing inguinal hernias In the ED patient received 1 L NS, Zosyn, Zofran, morphine Blood cultures negative in 24 hours, ? NS at 75 cc/h ? On Zosyn [06/25/2024?] ?Stool cultures pending ? Urine cultures ordered ? N.p.o. for possible GI intervention ? Protonix 40 mg twice daily ? GoLytely ? Pending colonoscopy ? Pain control ? GI Dr. Reveles consulted, appreciate recommendations #Hypertension Patient takes losartan 50 mg daily Patient normotensive at this time Will resume antihypertensives as needed #BPH Patient at this time denies any urinary problems ? Resumed tamsulosin Case discussed with my senior Dr. Adamson PGY-[address] Torres Schultz MD PGY-1 Disposition: MedSurg Fluids: NS Feeding: N.p.o. Thrombo prophylaxis: Heparin Gastric Ulcer prophylaxis: Pantoprazole CODE STATUS: Full code Attending Provider Attestation/Addendum IChanell, DO, attest that I was physically present for the samaniego portions of the service and evaluated the patient with the resident and I reviewed and discussed the case with the resident and agree with the resident's findings and plans of care as documented above Patient seen and evaluated this AM. He states that he is feeling much improved and pain in LLQ is greatly diminished. Patient was able to have bowel movements with GOLytely. Abdomen is soft and nondistended. Pending colonoscopy. Patient denies any dark or bloody stools. Anticipate DC within next 24h if patient remains stable. F/u with colonoscopy results
--- NOTE | 2024-06-26 18:18 | PC.NURSE ---
PATIENT OFF THE FLOOR GOING TO ENDO.
--- NOTE | 2024-06-26 19:27 | PC.NURSE ---
pt getting a colonoscopy.
--- NOTE | 2024-06-26 20:35 | SUR.PHASEI ---
events from: 1949: pt arrived to PACU via gurney, breathing unlabored, report from Laila HAYNES 1999: pt tolerating oral fluids without difficulty swallowing or n/v 2018: pt meets PACU discharge criteria, pt awake, alert, able to follow commands, breathing unlabored, report called to Kailey HAYNES, 2021: pt transferred to room at this time
[2024-06-27] VITALS: BP 112/67; PULSE 64; RESP 18; TEMP 36.7; O2SAT 96
[2024-06-27 04:00] VITALS: BP 114/71; PULSE 67; RESP 18; TEMP 36.9; O2SAT 94
[2024-06-27] MEDS: PIPER/TAZO INJ 3.375 GM in SODIUM CHLORIDE 0.9% (Popper) 50 ML IV (05:34)
[2024-06-27 06:03] LABS: Basophils % (Auto) 0 % (0-2.5); Eosinophils # (Auto) 0.2 Thou/mm3 (0.0-0.5); Eosinophils % (Auto) 3 % (0-10); Hemoglobin 11.7 g/dL (13.5-16.0); Immature Granulocytes % (Auto) 0 % (0-0); Immature Granulocytes Auto 0.02 Thou/mm3 (0.00-0.00); Lymphocytes # (Auto) 0.8 Thou/mm3 (1.0-4.8); Lymphocytes % (Auto) 15 % (10-50); Mean Corpuscular HGB Conc 33.4 g/dl (31.0-37.0); Mean Corpuscular Hemoglobin 34.6 pg (25.0-35.0); Mean Corpuscular Volume 104 fL (80-100); Monocytes # (Auto) 0.7 Thou/mm3 (0.0-0.8); Monocytes % (Auto) 12 % (0-12); Neutrophils % (Auto) 70 % (37-80); Nucleated Red Blood Cell % 0 /100 WBC (0); Platelet Count 121 Thou/mm3 (140-440); RDW Standard Deviation 48.6 fL (35.1-43.9); Red Blood Count 3.38 Miln/mm3 (4.50-5.90); White Blood Count 5.8 Thou/mm3 (3.8-10.6)
[2024-06-27 06:33] LABS: Alanine Aminotransferase 13 U/L (10-49); Albumin, Serum 3.3 gm/dL (3.4-4.8); Albumin/Globulin Ratio 1.7 (1.2-2.2); Alkaline Phosphatase 76 U/L (46-116); Anion Gap 7 (7-16); Aspartate Amino Transferase 18 U/L (0-34); BUN/Creatinine Ratio 13 Ratio (12-20); Bilirubin,Total 0.7 mg/dL (0.3-1.2); Blood Urea Nitrogen 10 mg/dL (9-23); Calcium 8.2 mg/dL (8.3-10.6); Calcium (Corrected) 8.8 mg/dL (8.5-10.1); Carbon Dioxide 25.9 mMol/L (20.0-31.0); Chloride 111 mMol/L (98-107); Creatinine (Component) 0.8 mg/dL (0.6-1.3); Estimated Creatinine Clearance 95.6 mL/min (>60); Glucose 92 mg/dL (74-106); Magnesium 1.9 mg/dL (1.6-2.6); Osmolality,Calculated 285 (275-295); Potassium 3.4 mMol/L (3.4-5.1); Sodium 144 mMol/L (136-145); Total Protein 5.3 gm/dL (5.7-8.2); eGFR > 60 See Note
[2024-06-27 07:25] VITALS: BP 106/56; PULSE 65; RESP 17; TEMP 37; O2SAT 95
[2024-06-27 08:00] VITALS: BP 106/56; PULSE 65; RESP 17; TEMP 37; O2SAT 95
[2024-06-27] MEDS: Magnesium Sulfate 4 GM Ivpb 4 GM/50 ML BAG IV (08:10)
[2024-06-27] MEDS: PANTOPRAZOLE INJ 40 MG VIAL IV (08:10)
[2024-06-27] MEDS: TAMSULOSIN HCL 0.4 MG CAPSULE PO (08:10)
[2024-06-27] MEDS: POTASSIUM CHLORIDE 20 mEq TABCR 40 MEQ PO (09:31)
[2024-06-27 11:45] VITALS: BP 115/64; PULSE 65; RESP 18; TEMP 37; O2SAT 96
--- NOTE | 2024-06-27 11:46 | ESDS_ITS ---
<Statement entered by Darby Ruffin MD - 06/27/24 16:10> I discussed with and supervised the undergraduate intern physician who took care of this patient. I personally saw and examined the patient and discussed the assessment and plan with the entire medicine team, including my attending Dr. Macdonald, I agree with most of the assessment and plan as documented below Darby Ruffin M.D. PGY-2 Disclaimer: Despite multiple revisions, due to the dictation software being used, the document bellow may not be free of grammatical errors including phonetic/typographic errors. However, this does not deter from our commitment to providing health care in the patient's best interest in mind. Planned Discharge Date 06/27/24 DS: Providers Provider Date of admission: 06/25/24 11:29 Primary care physician: Juana Winchesetr MD Admitting Provider: Chanell Macdonald DO Attending Provider on Admission: Chanell Macdonald DO Consults: 06/25/24 11:36 Consult to Gastroenterology Stat Comment: Consulting Provider: Ching Reveles Attending Provider on DC: Chanell Macdonald DO Discharging Provider: Filemon Scuhltz MD DS: Diagnosis Problem List Completed Was Problem List Reviewed/Reconciled?: Yes Hospital Course Hospital Course Hospital course: 73-year-old male with past medical history of hypertension, BPH who presented to ED due to abdominal pain. Pain started on 06/23/2024 became progressive and uncomfortable and decided to come to the ED on 06/25/2024. Pain was described as 10 out of 10 pain mostly on the left side but spreads to the rest of the abdomen when palpated. Patient also notes having fever and chills for 3 days and increasing abdominal distention. Patient was admitted for management of colitis. During hospital stay patient was managed with IV antibiotics, IV fluids. Patient had not had bowel movement in about 3 days and reported having black stools, GI Dr. Reveles was consulted for which patient had golytely and patient was able to have BM. Once patient was clear, patient had colonoscopy and was found with a 30mm polyp in the ascending colon, hemorrhoids, erythematous mucosa in the ascending colon, sigmoid and in the rectum and biopsies were taken in these areas. GI recommended low fiber diet and to follow up in the office within 2 weeks of discharge for biopsy results. At this time patient is medically stable for discharge. Follow-up with your Primary Care Provider within 1-2 weeks. Follow-up with Dr. Winchester on July 10 @ 2:30pm. Follow-up with wool hat flanger Dr. Reveles within 2 weeks of discharge to know results of biopsy from colonoscopy. Patient is instructed to follow a low fiber diet, per GI recommendations. Should any symptoms for recur or worsen patient is instructed to return to the ED. Problem List: # LLQ abdominal pain, suspect colitis # Lactic acidosis #Hemorrhoids #Diverticulosis #Hypertension #BPH Case discussed with my senior Dr. Ruffin PGY-[address] Torres Schultz MD PGY-1 Status at Discharge Functional status at discharge: independent ambulation Overall status at discharge: patient is back to baseline Time Spent with Patient Time attestation: Total time spent providing and/or coordinating discharge services: Time spent: Greater than 30 minutes Exam Vital Signs Temp Pulse Resp BP Pulse Ox O2 Del Method O2 Flow Rate 98.6 F 65 17 106/56 L 95 Room Air 3 06/27/24 08:00 06/27/24 08:00 06/27/24 08:00 06/27/24 08:00 06/27/24 08:00 06/27/24 08:00 06/26/24 19:40 Narrative Exam Physical Exam GENERAL: NAD, AAOx3 HEENT: Moist mucosa. Eyes open, symmetrical, & clear CARDIO: Heart RRR, no obvious murmurs PULM: No noted coughing/dyspnea CTA B/L, no R/W/R GI: Abdomen soft, nondistended, minimal pain on palpation of LLQ. BSx4 SKIN/MSK/EXT: No wounds/rashes/edema/amputations, no pain on palpation. Pedal p ulses present B/L NEURO: AAOx3, no focal neuro deficits, able to move all 4 extremities Discharge Plan Plan Patient Disposition: HOME (Self Care) Patient condition on transfer: Stable Care Plan Goals: Follow-up with your Primary Care Provider within 1-2 weeks. Follow-up with Dr. Winchester on July 10 @ 2:30pm Follow-up with wool hat flanger Dr. Reveles within 2 weeks of discharge to know results of biopsy from colonoscopy Patient is instructed to follow a low fiber diet Should any symptoms for recur or worsen patient is instructed to return to the ED. Prescriptions/Referrals Prescriptions/Med Rec: Continued losartan 50 mg Tablet 50 mg PO QDAY tamsulosin 0.4 mg capsule 0.4 mg PO QDAY Patient Comments: TAKE 2 CAPSULE BY ORAL ROUTE EVERY DAY 1/2 HOUR FOLLOWING THE SAME MEAL EACH DAY ibuprofen 800 mg tablet 800 mg PO Q8H PRN (Reason: pain) Qty: 60 0RF Discontinued hydrocodone-acetaminophen 10-325 mg tablet 1 tab PO Q6H MDD 4 PRN (Reason: pain) Qty: 28 0RF Referrals: Juana Winchester MD [Primary Care Provider] - Patient/Caregiver Discharge Instructions Education Materials: Abdominal Pain, Colonoscopy Print Language: Syriac Stand Alone Forms: [employer] Award Info., Patient Portal Info Letter Discharge Order Discharge Orders: Discharge (Routine); Ordered 06/27/24 Ordered By: Filemon Schultz Quality Discharge Quality Measures VTE prophylaxis
[2024-06-27 12:00] VITALS: BP 115/64; PULSE 65; RESP 18; TEMP 37; O2SAT 96
--- NOTE | 2024-06-27 23:16 | PD.IMPROG ---
Documentation for date of: 06/27/24 Subjective Subjective Interval history: Late entry for the note. Case discussed with internal medicine team Patient can be followed as an outpatient by the PCP Exam Vital Signs Temp Pulse Resp BP Pulse Ox O2 Del Method O2 Flow Rate 98.6 F 65 18 115/64 96 Room Air 3 06/27/24 12:00 06/27/24 12:00 06/27/24 12:00 06/27/24 12:00 06/27/24 12:00 06/27/24 12:00 06/26/24 19:40 Objective Labs 06/27/24 05:28 06/27/24 05:28 Labs: Laboratory Results - last 24 hr 06/27/24 05:28 WBC 5.8 RBC 3.38 L Hgb 11.7 L Hct 35.0 L MCV 104 H MCH 34.6 MCHC 33.4 RDW Std Deviation 48.6 H Plt Count 121 L Neut % (Auto) 70 Lymph % (Auto) 15 [place] % (Auto) 12 Eos % (Auto) 3 Baso % (Auto) 0 Neut # (Auto) 4.0 Lymph # (Auto) 0.8 L [place] # (Auto) 0.7 Eos # (Auto) 0.2 Baso # (Auto) 0.0 Immature Gran # (Auto) 0.02 H Absolute Nucleated RBC 0.00 Immature Gran % 0 Nucleated RBC % 0 Sodium 144 Potassium 3.4 Chloride 111 H Carbon Dioxide 25.9 Anion Gap 7 BUN 10 Creatinine 0.8 Estim Creat Clear Calc 95.6 eGFR > 60 BUN/Creatinine Ratio 13 Glucose 92 Calculated Osmolality 285 Calcium 8.2 L Corrected Calcium 8.8 Magnesium 1.9 Total Bilirubin 0.7 D AST 18 ALT 13 Alkaline Phosphatase 76 Total Protein 5.3 L Albumin 3.3 L Globulin 2.0 L Albumin/Globulin Ratio 1.7 Impressions Impression: Large ascending colon polyp status post endoscopic resection Okay to discharge patient home to be followed by the PCP Assessment & Plan A&P Narrative # Pain abdomen with fever and abnormal CT scan of the abdomen and pelvis Agree with Flaviasyn Flush the colon with the GoLytely reexamination in 24 hours We will consider doing a fiberoptic colonoscopy prior to discharge Other medical problems include Essential hypertension Gastroesophageal disease Status post hiatal hernia repair 11/30/2023 Thank you for the opportunity to participate in the care of this patient Time Spent With Patient Time: Total time spent is greater than 50% in coordination of care (as documented) at patient's floor/unit and/or counseling patient:
== END 2024-06-27 13:44 | disposition home or self-care (01) | DRG 392 ==
LOC: SERX 06:14 → SERHOLD 11:56 → S3NX 13:55
PROVIDERS: Physician Assistant; Specialist; Student in an Organized Health Care Education/Training Program; Admitting Provider Internal Medicine; Emergency Provider Emergency Medicine; PCP Internal Medicine; Visit Provider Internal Medicine
PROC: 0DJD8ZZ Inspection of Lower Intestinal Tract, Via Natural or Artificial Opening Endoscopic (ICD-10-PCS; CPT 45378; principal; 2024-06-26 20:00)
DX: K52.9 Noninfective gastroenteritis and colitis, unspecified (principal); K56.7 Ileus, unspecified; E87.20 Acidosis, unspecified; I10 Essential (primary) hypertension; N40.0 Benign prostatic hyperplasia without lower urinary tract symptoms; K40.90 Unilateral inguinal hernia, without obstruction or gangrene, not specified as recurrent; K63.5 Polyp of colon; K21.9 Gastro-esophageal reflux disease without esophagitis; K64.9 Unspecified hemorrhoids; N20.0 Calculus of kidney; K57.30 Diverticulosis of large intestine without perforation or abscess without bleeding; K56.41 Fecal impaction; Z79.899 Other long term (current) drug therapy; Z87.442 Personal history of urinary calculi
CPT/HCPCS: 36415; 74177; 80053; 81001; 82270; 83605; 83690; 83735; 84145; 85025; 87015; 87040; 87045; 87046; 87086; 87400; 87811; 87899; 96365; 96375; 96376; 99285; A4217; A4649; J1200; J1643; J2250; J2270; J2405; J2470; J2543; J3010; J3475; J3490; J7030; J7050; Q9967; A9270

== ENCOUNTER → 2024-11-03 | Outpatient (CLI) | payer MEDICARE, MEDICAID, SELFPAY ==
--- NOTE | 2024-11-03 10:15 | XR_ITS ---
Examination: Sinus series 2 views TECHNIQUE: [facility] lateral sinus series 2 views Date and time: November 03, 2024 1039 hours INDICATIONS: Sinus pressure and pain 2 months FINDINGS: Significant opacification frontal ethmoid air cells. Mucosal thickening up to 12 mm in the maxillary antra Sphenoid air cells are clear IMPRESSION: Chronic sinusitis, significant frontal ethmoid air cells
== END | disposition home or self-care (01) ==
PROVIDERS: PCP Internal Medicine
DX: J32.8 Other chronic sinusitis (principal)
CPT/HCPCS: 70210

== ENCOUNTER → 2025-03-29 | Outpatient (CLI) | payer MEDICARE, MEDICAID, SELFPAY ==
[2025-03-29 12:58] LABS: Anion Gap 9 (7-16); BUN/Creatinine Ratio 15 Ratio (12-20); Blood Urea Nitrogen 15 mg/dL (9-23); Calcium 9.9 mg/dL (8.3-10.6); Carbon Dioxide 30.9 mMol/L (20.0-31.0); Chloride 104 mMol/L (98-107); Creatinine (Component) 1.0 mg/dL (0.6-1.3); Glucose 101 mg/dL (74-106); Osmolality,Calculated 287 (275-295); Potassium 4.0 mMol/L (3.4-5.1); Sodium 144 mMol/L (136-145); eGFR > 60 See Note
== END | disposition home or self-care (01) ==
LOC: COPL 11:31
DX: R10.32 Left lower quadrant pain (principal)
CPT/HCPCS: 36415; 80048